=== PATIENT | male | born 1980 | race Caucasian/White ===

== ENCOUNTER → 2024-11-08 | Outpatient (CLI) | payer OTHER ==
[2024-11-08 14:06] VITALS: BP 144/89; PULSE 96; RESP 20; TEMP 98.6
--- NOTE | 2024-11-08 16:29 | P.SLEEP ---
History of Present Illness H&P Date: 11/08/24 Chief Complaint: LIVIA This is a 44-year-old male patient is coming due to concerns of sleep apnea. The patient is morbidly obese. The patient has a body mass index of 41.8. The patient has been diagnosed having difficulties with attention span and concentration and he was given a diagnosis of ADD/ADHD during his childhood. He was treated with stimulants over the years with good success. Subsequently, went into a painful and ugly divorce which made him abuse amphetamines. During this time, the patient was abusing amphetamines and was also selling the drug. He was ultimately busted and incarcerated for a total of 5 months. During his stay in present, the patient was having symptoms of sleep apnea where he was loud snoring and his sleep was noted to be fragmented by various inmates. This was brought up to the healthcare providers at present and the patient was provided the CPAP. He used the CPAP during his stay in senior living and he felt great. His sleep quality improved considerably and the patient was waking up much more alert and awake during the day. Now that he is released out of present, his sleep quality has gotten bad and the patient is complaining of loud snoring, sleep fragmentation, frequent nocturnal arousals and excessive hypersomnia and sleepiness during the day. He goes to bed around 11 PM and wakes up 6:30 AM in the morning. He wakes up not refreshed and he has difficulties in keeping himself awake and alert during the day. Denies having any motor vehicle accident because of feeling drowsy or sleepy. He has issues with chronic pain. Several years back, he fell off a tree. He had constructed a blind for deer hunting and is standing base collapsed and he fell off a tree which was approximately 30 feet high. He sustained major injuries to his shoulder and hip. Following that, the patient underwent a right shoulder repla cement and a right hip replacement. His pain is under adequate control. He does not take any form of painkillers for now. He is known to have hypertension. His weight has been stable over the years. No active use of amphetamines. No alcohol drinking for the past year. He drinks 2 cups of coffee a week. Used to smoke 1 pack of cigarettes a day and he quit smoking approximately 6 months ago. He is currently living alone. He is a mouth breather. He prefers to sleep on his sides. Review of Systems Constitutional: Reports daytime sleepiness, Reports fatigue, Reports weight gain Eyes: denies as per HPI, denies blurred vision, denies bulging eye, denies decreased vision, denies diplopia, denies discharge, denies dry eye, denies irritation, denies itching, denies pain, denies photophobia, denies loss of peripheral vision, denies loss of vision, denies tunnel vision/blind spots Ears: deny: decreased hearing, ear discharge, earache, tinnitus Ears, nose, mouth and throat: Reports as per HPI Breasts: absent: as per HPI, gynecomastia Cardiovascular: Reports as per HPI Respiratory: Reports sleep apnea, Reports snoring Gastrointestinal: Reports as per HPI Genitourinary: Reports as per HPI Musculoskeletal: Reports as per HPI, Reports limitation of motion Musculoskeletal: absent: ankle pain, ankle stiffness, ankle swelling, as per HPI, elbow pain, elbow stiffness, elbow swelling, foot pain, foot stiffness, foot swelling, hand pain, hand stiffness, hand swelling, hip pain, hip stiffness, hip swelling, knee pain, knee stiffness, knee swelling, shoulder pain, shoulder stiffness, shoulder swelling, wrist pain, wrist stiffness, wrist swelling Integumentary: Reports as per HPI Neurological: Reports as per HPI Psychiatric: Reports change in sleep habits, Reports hypersomnia, Reports sleep disturbances Endocrine: Reports as per HPI, Reports fatigue Hematologic/Lymphatic: Reports as per HPI Past Medical History Past Medical History: Hypertension History of Any Multi-Drug Resistant Organisms: None Reported Additional Past Surgical History / Comment(s): R hip replaced, r shoulder reconstructed Past Psychological History: No Psychological Hx Reported Smoking Status: Former smoker Past Alcohol Use History: None Reported Past Drug Use History: Methamphetamine Physical Exam Vitals: Vital Signs Temp Pulse Resp BP Pulse Ox 11/08/24 14:03 98.6 F 96 20 144/89 97 Intake and Output 11/08/24 11/08/24 11/08/24 06:59 14:59 22:59 Other: Weight 128.537 kg The patient appeared well nourished and normally developed. Vital signs as documented. Body mass index of 53.8. The patient has a Mallampati class IV. Size of his neck is 20.5 inches. Head exam is unremarkable. No scleral icterus or corneal arcus noted. Neck is without jugular venous distension, thyromegaly, or carotid bruits. Carotid upstrokes are brisk bilaterally. Lungs are clear to auscultation and percussion. Cardiac exam reveals the PMI to be normally sized and situated. Rhythm is regular. First and second heart sounds normal. No murmurs, rubs or gallops. Abdominal exam reveals normal bowel sounds, no masses, no organomegaly and no aortic enlargement. Extremities are nonedematous and both femoral and pedal pulses are normal. Examination of the skin revealed no evidence of significant rashes, suspicious appearing nevi or other concerning lesions. Neurologically, the patient is awake and alert and the patient does not have any focal neurological deficit. Cranial nerves are essentially intact. Assessment and Plan Plan: Obstructive sleep apnea, clinically suspected. The patient was treated with CPAP therapy without having an official diagnosis and the patient improved considerably. Please refer to details above in the HPI. The patient wants to follow-up on this matter and the patient wants to have further investigation as the patient has typical signs and symptoms of obstructive sleep apnea including loud snoring, sleep fragmentation in addition to chronic hypersomnia and sleepiness. His current [place] score is at 2. Obesity with a BMI of 53.8 Hypertension History of amphetamine/methamphetamine abuse History of ADD/ADHD History of falling off a tree with secondary skeletal injuries and chronic pain. Plan Will proceed with a screening polysomnography. It is very much likely that the patient has underlying obstructive sleep apnea. Based on that, the patient will need CPAP therapy. He has utilized CPAP therapy in the past and has benefited and is interested in pursuing this treatment further. Encourage weight loss Maintain good sleep hygiene measures Avoid taking any form of daytime stimulants Naps during the day if needed Maintain regular sleep schedule Will continue to follow make further recommendations based on the results of the sleep study. Time with Patient: Greater than 30 Sleep Note - Sleep Data ESS Total: 2 - Sleep Note Sleep Note: Temperature: 98.6 F Pulse Rate: 96 Respiratory Rate: 20 Blood Pressure: 144/89 SpO2: 97 Height: 5 ft 9 in Weight: 128.537 kg BMI: Neck Circumference: 20.5
== END ==
LOC: 3 N SLEEP 13:29
PROVIDERS: ATTEND Internal Medicine Critical Care Medicine
DX: G47.33 Obstructive sleep apnea (adult) (pediatric) (principal); I10 Essential (primary) hypertension; Z87.891 Personal history of nicotine dependence; Z68.43 Body mass index [BMI] 50.0-59.9, adult; Z87.898 Personal history of other specified conditions; Z86.59 Personal history of other mental and behavioral disorders; Z91.81 History of falling
CPT/HCPCS: 99211

== ENCOUNTER → 2024-11-24 | Outpatient (CLI) | payer OTHER ==
--- NOTE | 2024-11-24 17:10 | US ---
EXAMINATION TYPE: US kidneys/renal and bladder DATE OF EXAM: 11/24/2024 COMPARISON: NONE CLINICAL INDICATION: Male, 44 years old with history of N20.0 CALCULUS OF KIDNEY; Pt states flank armani n x many years TECHNIQUE: Grayscale imaging of the bilateral kidneys and urinary bladder: FINDINGS: EXAM MEASUREMENTS: Right Kidney: 14.0 x 7.4 x 5.7 cm Left Kidney: 13.7 x 6.8 x 5.5 cm Right Kidney: No evidence of hydro, echogenic foci with posterior shadowing upper pole= 8mm in size, kidney large in size Left Kidney: No evidence of hydro, kidney large in size Bladder: wnl Bilateral Jets seen: No There is no evidence for hydronephrosis at this point in time. No nephrolithiasis is seen. No musa s are identified. The urinary bladder is anechoic. IMPRESSION: 1. Nonobstructing superior pole right renal stone [facility], , 11/24/2024 5:08 PM
== END | disposition home or self-care (01) ==
LOC: RADUSWWP 15:23
PROVIDERS: ATTEND Internal Medicine
DX: N20.0 Calculus of kidney (principal)
CPT/HCPCS: 76770

== ENCOUNTER 2024-12-12 19:44 | Outpatient (CLI) | payer OTHER ==
--- NOTE | 2024-12-20 14:27 | P.PCN ---
Date of Procedure: 12/12/24 Operative Findings: Polysomnography report History This is a 44-year-old male patient is coming due to concerns of sleep apnea. The patient is morbidly obese. The patient has a body mass index of 41.8. The patient has been diagnosed having difficulties with attention span and concentration and he was given a diagnosis of ADD/ADHD during his childhood. He was treated with stimulants over the years with good success. Subsequently, went into a painful and ugly divorce which made him abuse amphetamines. During this time, the patient was abusing amphetamines and was also selling the drug. He was ultimately busted and incarcerated for a total of 5 months. During his stay in present, the patient was having symptoms of sleep apnea where he was loud snoring and his sleep was noted to be fragmented by various inmates. This was brought up to the healthcare providers at present and the patient was provided the CPAP. He used the [facility]AP during his stay in [facility] and he felt great. His sleep quality improved considerably and the patient was waking up much more alert and awake during the day. Now that he is released out of present, his sleep quality has gotten bad and the patient is complaining of loud snoring, sleep fragmentation, frequent nocturnal arousals and excessive hypersomnia and sleepiness during the day. He goes to bed around 11 PM and wakes up 6:30 AM in the morning. He wakes up not refreshed and he has difficulties in keeping himself awake and alert during the day. Denies having any motor vehicle accident because of feeling drowsy or sleepy. He has issues with chronic pain. Several years back, he fell off a tree. He had constructed a blind for deer hunting and is standing base collapsed and he fell off a tree which was approximately 30 feet high. He sustained major injuries to his shoulder and hip. Following that, the patient underwent a right shoulder repla cement and a right hip replacement. His pain is under adequate control. He does not take any form of painkillers for now. He is known to have hypertension. His weight has been stable over the years. No active use of amphetamines. No alcohol drinking for the past year. He drinks 2 cups of coffee a week. Used to smoke 1 pack of cigarettes a day and he quit smoking approximately 6 months ago. He is currently living alone. He is a mouth breather. He prefers to sleep on his sides. Technical description The patient was studied using a standard complex polysomnography protocol that included recording of the Lead II EKG, Central, occipital and frontal EEG, right and left outer canthus EOG, submental EMG, right and left anterior tibialis EMG, respiratory airflow by thermocouple and or pressure/flow transducer, respiratory efforts by abdominal and thoracic PVDF belts, oxygen saturation by cable oximetry. Position by observation synchronized the PSG. Equipment used: [employer]. Sleep architecture Total recording duration was 4 to 3.5 minutes. The total sleep time was 279.0 minutes. The overall sleep efficiency was 69.1%. The wake after sleep onset was 118 minutes. The sleep architecture was characterized by 35.7% stage I, 59.0% stage II, 0% stage III and a total of 5.4% REM sleep. The latency to sleep onset was 6 minutes. The total arousal index was 38.3. Respiratory analysis The patient had a total of 370 obstructive events of which to 64 obstructive apneas, 2 were mixed apneas and 104 were obstructive hypopneas. No central apneas were noted and the patient was AHI was calculated to be at 78.7 consistent with severe obstructive sleep apnea. Oxygenation analysis The baseline pulse ox was 95% while awake. Minimum pulse ox during sleep was 71% during REM sleep. This patient spent approximately 51 minutes of the sleep time below pulse ox of 89% accounted for 12.6% of the overall recording time Periodic limb movements None Sleep continuity summary The patient had a total of 178 arousals with an index of 38.3. The respiratory arousal index was 29 Cardiac summary Average heart rate was 78 with a minimum heart rate of 72 and a maximum heart rate of 82 Assessment Severe obstructive sleep apnea with an AHI of 78. Severe nocturnal oxygen desaturation with a minimum pulse ox of 71% Abnormalities in sleep architecture with over representation of stage I sleep and stage II sleep. There is also diminished delta wave and REM Sleep fragmentation with a high arousal index Chronic hypersomnia and sleepiness Obesity with a BMI of 53.8 Hypertension History of amphetamine/methamphetamine abuse History of ADD/ADHD History of falling off a tree with secondary skeletal injuries and chronic pain. Plan Proceed with CPAP titration for severe symptomatic obstructive sleep apnea Encourage weight loss Maintain good sleep hygiene measures Avoid taking any form of daytime stimulants Naps during the day if needed Maintain regular sleep schedule Will continue to follow
== END 2024-12-13 05:30 | disposition home or self-care (01) ==
LOC: 3 N SLEEP 19:44
PROVIDERS: ATTEND Internal Medicine Critical Care Medicine
DX: G47.33 Obstructive sleep apnea (adult) (pediatric) (principal); E66.01 Morbid (severe) obesity due to excess calories; I10 Essential (primary) hypertension; G89.29 Other chronic pain; Z86.59 Personal history of other mental and behavioral disorders; Z87.891 Personal history of nicotine dependence; Z68.43 Body mass index [BMI] 50.0-59.9, adult; Z87.81 Personal history of (healed) traumatic fracture
CPT/HCPCS: 95810